=== PATIENT | male | born 1975 | race African-American/Black ===

== ENCOUNTER 2021-09-15 01:01 | Observation (INO) | payer BC ==
[~2021-09-15] VITALS: Ht 170.2 cm; Wt 91.0 kg
[~2021-09-15 01:01] MED LIST: HYDROCODONE/APAP; LEVAQUIN 750MG750 MG PO; NO HOME MEDICATIONS; PERCOCET 650 MG1 TAB PO
[2021-09-15 01:18] LABS: BASO % 0.2 % (0.0-2.0); GRAN # 9.9 K/mm3 (1.4-6.5); GRAN % 85.7 % (42.2-75.2); HEMATOCRIT 37.9 % (42.0-52.0); HEMOGLOBIN 13.7 g/dl (13.5-18.0); LYMPH % 8.8 % (20.0-51.0); MEAN CELL VOLUME 70 fl (80.0-100.0); MEAN CORPUSCULAR HEMOGLOBIN 25 pg (27-31); MEAN CORPUSCULAR HGB CONC 36 g/dl (33.0-37.0); MEAN PLATELET VOLUME 9.3 fl (7.4-10.4); MONO # 0.6 K/mm3 (0.1-0.6); PLATELET COUNT 279 K/mm3 (130-400); RED BLOOD COUNT 5.44 M/mm3 (4.20-5.60); REDCELL DISTRIBUTION WIDTH-CV 16.4 % (11.5-14.5)
[2021-09-15 01:43] LABS: ALANINE AMINOTRANSFERASE 13 U/L (0-55); ALKALINE PHOSPHATASE 57 U/L (40-150); ANION GAP 12 mmol/L (7-16); AST,SGOT 18 U/L (5-34); BILIRUBIN,TOTAL 4.3 mg/dL (0.2-1.2); BLOOD UREA NITROGEN 10 mg/dL (9-21); C-REACTIVE PROTEIN 0.39 mg/dL (0.00-0.50); CALCIUM 9.8 mg/dL (8.4-10.2); CARBON DIOXIDE 21 mmol/L (22-29); CHLORIDE 105 mmol/L (98-107); GLUCOSE 111 mg/dL (70-99); LIPASE 18 U/L (8-78); POTASSIUM 3.7 mmol/L (3.5-4.5); SODIUM 138 mmol/L (136-145); TOTAL PROTEIN 8.8 gm/dL (6.2-8.1)
[2021-09-15 01:50] LABS: TROPONIN-I < 0.010 ng/mL (0.00-0.033)
[2021-09-15 02:04] LABS: CREATININE, serum 0.95 mg/dL (0.72-1.25)
[2021-09-15 03:03] LABS: COLLECTION METHOD CLEAN CATCH
[2021-09-15 03:09] LABS: PH 7 (5-8); SQUAMOUS EPITHELIAL 0-2 /hpf (0-10); URINE APPEARANCE Clear (CLEAR/HAZY); URINE BACTERIA None Seen /hpf (NONE SEEN); URINE BILIRUBIN Negative (NEGATIVE); URINE BLOOD 1+ (NEGATIVE); URINE COLOR Yellow (YELLOW); URINE GLUCOSE Negative (NEGATIVE); URINE KETONE Trace (NEGATIVE); URINE LEUKOCYTE ESTERASE Negative (NEGATIVE); URINE NITRATE Negative (NEGATIVE); URINE PROTEIN(semi-quant) Negative (NEGATIVE); URINE RBC 0-2 /hpf (0-2); URINE UROBILINOGEN >=4.0 (NEGATIVE)
[2021-09-15 06:24] VITALS: BP 139/72; PULSE 82; TEMP 98.9
--- NOTE | 2021-09-15 06:30 | NUR ---
RECEIVED REPORT FROM Gregg MAYES, ELICEO. PATIENT TO ROOM PER CART. IV FLUIDS INFUSING WITH NO PROBLEMS. DENIES ANY DISCOMFORT AT THIS TIME. DENIES NAUSEA AT THIS TIME. UP TO BATHROOM TO VOID WITH NO REPORTED PROBLEMS. DENIES CHEST PAIN/SOA AT THIS TIME.
--- NOTE | 2021-09-15 07:25 | NUR ---
Change of shift report given to day shift RNRosa.
[2021-09-15 07:33] VITALS: BP 134/72; PULSE 79; TEMP 99.1
--- NOTE | 2021-09-15 08:00 | NUR ---
PT RESTING QUIETLY IN BED, SLEEPS BUT IS EASILY AROUSABLE. IVF INFUSING. PT DENIES PAIN OR NAUSEA, HAS BEEN NPO BESIDES A FEW ICE CHIPS. RESPIRATIONS UNLABORED ON RA. PT DENIES NEEDS. CALL LIGHT WITHIN REACH.
[2021-09-15] MEDS ORDERED: ZOFRAN ODT4 MG PO (09:52)
[2021-09-15 10:05] VITALS: BP 186/84; PULSE 84; TEMP 98.1
--- NOTE | 2021-09-15 10:05 | NUR ---
MICKIE met with the patient to discuss discharge plan. The patient lives in [place] with his , Shahnaz (ph#[phone]). He reports independence with ADLs and does not have any DME. The patient's PCP is Dr. Justice Bundy and he receives his medications from [facility] in [facility]. The patient does not have a DPOA-HC, but he was interested in obtaining a form. MICKIE provided. The patient plans on returning home with his upon discharge. No additional needs at this time. *Discharge plan: home with *
[2021-09-15 16:00] VITALS: BP 135/80; PULSE 81; TEMP 99.1
--- NOTE | 2021-09-15 16:20 | NUR ---
PT DISCHARGED TO HOME. DISCARGE INSTRUCTIONS ET EDUCATION COMPLETED, PT DENIES QUESTIONS. PT HAD EATEN 1/2 OF A SALAD FOR LUNCH, TOLERATED WELL WITHOUT NAUSEA BUT STATES THAT HE DOES NOT HAVE A BIG APPETITE. PT DENIES PAIN. IV IN RIGHT AC DCED. PT LIVES @ HOME WITH HIS FAMILY, TAKEN DOWNSTAIRS VIA WC ACCOMPANIED BY JEROME MAYES.
== END 2021-09-15 16:20 | disposition home or self-care (01) ==
LOC: COL.ER 01:01 → SURG 05:10
PROVIDERS: Emergency Medicine; ADMIT Surgery
DX: R10.11 Right upper quadrant pain (principal); R17 Unspecified jaundice; R11.2 Nausea with vomiting, unspecified; D72.829 Elevated white blood cell count, unspecified; E80.7 Disorder of bilirubin metabolism, unspecified; F17.210 Nicotine dependence, cigarettes, uncomplicated
CPT/HCPCS: G0378; J2405; J2543; J2550; J3010; J7030; Q9967

== ENCOUNTER 2021-10-02 07:28 | Day surgery (SDC) | payer BC ==
[~2021-10-02] VITALS: Ht 170.2 cm; Wt 89.1 kg
[~2021-10-02 07:28] MED LIST changes: +ZOFRAN ODT4 MG PO
[2021-10-02 08:13] VITALS: BP 141/84; PULSE 93; TEMP 98.4
--- NOTE | 2021-10-02 09:31 | NUR ---
Pt taken via cart by Agata Hanson RN to OR for scheduled surgery.
[2021-10-02] MEDS ORDERED: NORCO 325 MG-51 TAB PO (11:36)
[2021-10-02] MEDS ORDERED: MOTRIN 600600 MG/TAB PO (11:37)
[2021-10-02 12:05] VITALS: BP 126/79; PULSE 99; TEMP 97.2
[2021-10-02 12:15] VITALS: BP 127/88; PULSE 88
[2021-10-02 12:30] VITALS: BP 126/81; PULSE 90
[2021-10-02 12:45] VITALS: BP 124/75; PULSE 89
--- NOTE | 2021-10-02 13:23 | NUR ---
1205- Pt returned via cart from PACU to bay 6. Pt drowsy, arousable to stimuli. VSS-see flowsheet. 5 lap abdominal sites noted to be clean, dry and intact with exofin glue. Pt denies needs or complaints upon return and resting with eyes closed and at bedside. 1323-VS remain stable-see flowsheet. Pt tolerated water and ice chips. Up to void in bathroom without difficulty. IV removed, catheter tip intact and pressure dressing applied. Pt dressed. DC teaching completed, pt and pts verbalized understanding. Pt taken via wheelchair to private vehicle for dc home with driving.
== END 2021-10-02 13:23 | disposition home or self-care (01) ==
LOC: SDCO 07:28
DX: K80.12 Calculus of gallbladder with acute and chronic cholecystitis without obstruction (principal); E66.9 Obesity, unspecified; Z68.30 Body mass index [BMI] 30.0-30.9, adult; F17.290 Nicotine dependence, other tobacco product, uncomplicated; Z28.310 Unvaccinated for COVID-19; Z28.9 Immunization not carried out for unspecified reason
CPT/HCPCS: J0690; J1100; J1885; J2405; J2704; J3010; Q9967